=== PATIENT | male | born 1965 | race Caucasian/White ===

== ENCOUNTER 2020-11-21 11:36 | Outpatient (REF) | payer OTHER, SELFPAY | END 2020-11-21 11:37 | disposition home or self-care (01) | LOC: HO.LAB 11:36 | PROVIDERS: Visit Provider Internal Medicine | DX: Z20.822 Contact with and (suspected) exposure to COVID-19 (principal) | CPT/HCPCS: 36415; C9803; U0003 ==

== ENCOUNTER 2020-11-27 09:43 | Outpatient (REF) | payer OTHER, SELFPAY | END 2020-11-27 09:44 | disposition home or self-care (01) | LOC: HO.LAB 09:43 | PROVIDERS: Visit Provider Internal Medicine | DX: Z20.822 Contact with and (suspected) exposure to COVID-19 (principal) | CPT/HCPCS: 36415; C9803; U0003 ==

== ENCOUNTER 2020-12-12 10:12 | Outpatient (REF) | payer OTHER, SELFPAY | END 2020-12-12 10:13 | disposition home or self-care (01) | LOC: HO.LAB 10:12 | PROVIDERS: Visit Provider Internal Medicine | DX: Z20.822 Contact with and (suspected) exposure to COVID-19 (principal) | CPT/HCPCS: 36415; C9803; U0003; U0005 ==

== ENCOUNTER 2021-01-21 10:24 | Outpatient (REF) | payer OTHER, SELFPAY | END 2021-01-21 10:25 | disposition home or self-care (01) | LOC: HO.LAB 10:24 | PROVIDERS: Visit Provider Internal Medicine | DX: Z20.822 Contact with and (suspected) exposure to COVID-19 (principal) | CPT/HCPCS: 36415; C9803; U0003; U0005 ==

== ENCOUNTER 2021-02-13 15:20 | Outpatient (REF) | payer OTHER, SELFPAY | END 2021-02-13 15:21 | disposition home or self-care (01) | LOC: HO.LAB 15:20 | PROVIDERS: Visit Provider Internal Medicine | DX: Z20.822 Contact with and (suspected) exposure to COVID-19 (principal) | CPT/HCPCS: C9803; U0003; U0005 ==

== ENCOUNTER 2021-04-09 10:29 | Outpatient (REF) | payer OTHER, SELFPAY | END 2021-04-09 10:30 | disposition home or self-care (01) | LOC: HO.LAB 10:29 | PROVIDERS: Visit Provider Internal Medicine | DX: Z20.822 Contact with and (suspected) exposure to COVID-19 (principal) | CPT/HCPCS: C9803; U0003; U0005 ==

== ENCOUNTER 2021-06-02 10:14 | Outpatient (REF) | payer OTHER, SELFPAY | END 2021-06-02 10:15 | disposition home or self-care (01) | LOC: HO.LAB 10:14 | PROVIDERS: Visit Provider Internal Medicine | DX: Z20.822 Contact with and (suspected) exposure to COVID-19 (principal) | CPT/HCPCS: C9803; U0003; U0005 ==

== ENCOUNTER 2021-07-15 14:09 | Outpatient (REF) | payer OTHER, SELFPAY | END 2021-07-15 14:10 | disposition home or self-care (01) | LOC: HO.LAB 14:09 | PROVIDERS: Visit Provider Internal Medicine | DX: Z20.822 Contact with and (suspected) exposure to COVID-19 (principal) | CPT/HCPCS: C9803; U0003; U0005 ==

== ENCOUNTER 2021-07-25 12:06 | Outpatient (REF) | payer OTHER, SELFPAY | END 2021-07-25 12:07 | disposition home or self-care (01) | LOC: HO.LAB 12:06 | PROVIDERS: Visit Provider Internal Medicine | DX: Z20.822 Contact with and (suspected) exposure to COVID-19 (principal) | CPT/HCPCS: C9803; U0003; U0005 ==

== ENCOUNTER 2021-09-29 13:09 | Emergency (ER) | payer OTHER, SELFPAY ==
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
[2021-09-29 15:24] VITALS: BP 135/77; PULSE 78; RESP 16; O2SAT 98; BMI 25.2
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
== END 2021-09-29 16:28 | disposition home or self-care (01) ==
LOC: HO.ED 16:05
PROVIDERS: Emergency Provider Emergency Medicine
DX: S39.012A Strain of muscle, fascia and tendon of lower back, initial encounter (principal); V43.52XA Car driver injured in collision with other type car in traffic accident, initial encounter; Y93.89 Activity, other specified; Y92.414 Local residential or business street as the place of occurrence of the external cause; Y99.9 Unspecified external cause status
CPT/HCPCS: 72100; 99283

== ENCOUNTER → 2023-03-26 10:47 | Outpatient (BNVA) | payer OTHER, SELFPAY | PROVIDERS: PCP Registered Nurse; Referring Provider Registered Nurse; Visit Provider Surgery | DX: L72.9 Follicular cyst of the skin and subcutaneous tissue, unspecified (principal) | CPT/HCPCS: 99202 ==

== ENCOUNTER 2023-06-28 10:15 | Outpatient (REF) | payer OTHER, SELFPAY ==
[2023-06-28 12:30] LABS: Cholesterol 169 mg/dL (<200); HDL Cholesterol 47 mg/dL (>40); LDL Cholesterol Calculated 105 mg/dL (<100); Triglycerides 85 mg/dL (<150)
[2023-06-28 12:44] LABS: Estimated Average Glucose 108 mg/dL; Hemoglobin A1c % 5.4 % (<6.0); Prostate Specific Antigen 1.48 ng/mL (<0.05-4.0)
[2023-06-28 12:51] LABS: HBS Num1 15.23 mIU/mL (0-7.99); HBc Num1 4.81 S/CO (0.00-0.79); HBsAGNum1 0.47 S/CO (0.00-0.99); Hepatitis A Antibody IgM 0.29 Index (0-0.79); Hepatitis B Surface Antigen Negative (Negative); ~HepC Num1 0.21 S/CO (0.00-0.79); ~Hepatitis A Antibody IgM Nonreactive (Nonreactive); ~Hepatitis B Surface Antibody REACTIVE (Nonreactive); ~Hepatitis C Antibody Nonreactive (Nonreactive)
[2023-06-28 14:17] LABS: HBc Num2 4.83 S/CO; HBc Num3 4.86 S/CO; Hepatitis B Core Antibody Reactive (Nonreactive)
== END 2023-06-28 10:16 | disposition home or self-care (01) ==
LOC: HO.HHCL 10:15
PROVIDERS: Visit Provider Registered Nurse
DX: Z00.00 Encounter for general adult medical examination without abnormal findings (principal); Z12.5 Encounter for screening for malignant neoplasm of prostate; R73.03 Prediabetes; I10 Essential (primary) hypertension; I83.90 Asymptomatic varicose veins of unspecified lower extremity; E78.5 Hyperlipidemia, unspecified
CPT/HCPCS: 36415; 80061; 83036; 84153; 86704; 86706; 86709; 86803; 87340

== ENCOUNTER 2023-07-29 10:43 | Outpatient (REF) | payer OTHER, SELFPAY ==
[2023-07-29 10:58] VITALS: BMI 25.2
[2023-07-29 10:59] VITALS: BP 142/73; PULSE 67; RESP 16; TEMP 36.7; O2SAT 99
[2023-07-29 11:33] VITALS: BP 157/76; PULSE 77; RESP 16; O2SAT 95
--- NOTE | 2023-07-29 11:58 | W.PM.OPN ---
Operative Note Operative Note Date of Service: 07/29/23 Narrative: Preoperative diagnosis: Scrotal cyst Postoperative diagnosis: Same Procedure: Excision of scrotal cyst Surgeon: Spenser Torres MD Computer Programmer Analyst: None Anesthesia: 0.5% Sensorcaine with epinephrine Indications for procedure: 58-year-old male patient presenting with a cyst located in the midline anterior scrotum which is increasing in size. The patient denies any history of infection but is requesting excision. Operative findings: 1 cm scrotal cyst anterior midline scrotal sac Specimen: Scrotal cyst Estimated blood loss: 5 mL Complications: None Procedure details: Patient was brought to the minor surgery suite placed in a supine position. After ensuring informed consent, the patient confirm the site of surgery in the scrotum. The skin was then prepped with Betadine and draped in a sterile fashion. Local anesthesia was then infiltrated around the cyst. Incision was then made in elliptical fashion oriented transversely around the cyst. The cyst was then excised from the surrounding subcutaneous tissue. The specimen was passed off the table and sent to pathology for further examination. Light pressure was held to maintain hemostasis. Skin was then closed using a running 4-0 chromic suture. This was then burred with a liquid dressing. The patient tolerated the procedure well. He was discharged to home in stable condition.
== END 2023-07-29 10:44 | disposition home or self-care (01) ==
LOC: HO.MS 10:43
PROVIDERS: PCP Registered Nurse; Visit Provider Surgery
PROC: (CPT 11421; principal; 2023-07-29 11:10)
DX: L72.8 Other follicular cysts of the skin and subcutaneous tissue (principal)
CPT/HCPCS: 11421; 88304

== ENCOUNTER → 2023-07-29 10:43 | Outpatient (BNV) | payer OTHER, SELFPAY | PROVIDERS: PCP Registered Nurse; Visit Provider Surgery | DX: L72.0 Epidermal cyst (principal) | CPT/HCPCS: 11422 ==

== ENCOUNTER 2023-08-06 10:24 | Outpatient (AMB) | payer OTHER, SELFPAY ==
--- NOTE | 2023-08-06 10:39 | A.OFFVIS_ITS ---
Intake Vital Signs 08/06/23 10:45 Height 5 ft 6 in Weight 159 lb 8 oz BMI 25.7 BP 139/82 Blood Pressure Location Lt brachial Position Sitting Pulse 69 Intake Visit Reasons: S/P excision skin cyst of scrotum Intake Note: Patient is sen in office for post op assessment post excision of cyst scrotum. Patient c/o: admits to pain and discomfort in the area Jig Grinder Set Up Operator Required: Yes Jig Grinder Set Up Operator Language: Captain Airline Pilot Name: Jewels PAYTON Information Interpreted: non-clinical & clinical Accompanied by: Family/Other Allergies Penicillins [PCN] Allergy (Unknown, Unverified 08/06/23 10:44) UNKNWN aspirin Adverse Reaction (Intermediate, Verified 08/06/23 10:44) Nose Bleed ibuprofen Adverse Reaction (Mild, Verified 08/06/23 10:44) Nose Bleed HPI HPI Comments History of Present Illness Details Patient returns 1 week following excision of a scrotal cyst. Pathology confirmed an epidermal inclusion cyst. He tolerated the procedure well and returns today for wound check. [facility] Medical History (Updated 03/26/23 @ 11:10 by Spenser Torres MD) Hypertension Surgical History H/O removal of cyst (07/29/23) Physical Exam Vital Signs: Last Vital Signs Pulse 69 08/06/23 10:45 BP 139/82 08/06/23 10:45 BMI result Body Mass Index 25.7 Const General: healthy appearing Nutritional Appearance: well nourished Orientation/consciousness: patient oriented x3 Limitations: no limitations Resp Effort & Inspection: normal respiratory effort Other: Incision in scrotum is clean, dry, and intact without redness or discharge. Dissolvable sutures remain in place. There is no evidence of wound infection or hematoma. Neuro General: patient oriented x3 Assessment & Plan Assessment & Plan (1) Scrotal cyst: Code(s): L72.9 - Follicular cyst of the skin and subcutaneous tissue, unspecified Plan Patient tolerated the procedure well and his wounds are well healed. He should follow up as needed. Coding Level of Care Code Global (06344) Diagnoses Scrotal cyst L72.9
[2023-08-06 10:45] VITALS: BP 139/82; PULSE 69; BMI 25.7
== END 2023-08-06 11:10 | disposition home or self-care (01) ==
PROVIDERS: PCP Registered Nurse; Visit Provider Surgery
DX: L72.9 Follicular cyst of the skin and subcutaneous tissue, unspecified (principal)
CPT/HCPCS: 99024

== ENCOUNTER → 2023-08-06 10:24 | Outpatient (BNVA) | payer OTHER, SELFPAY | PROVIDERS: PCP Registered Nurse; Visit Provider Surgery ==

== ENCOUNTER 2024-01-11 12:21 | Outpatient (REF) | payer OTHER, SELFPAY ==
[2024-01-11 14:10] LABS: MANUAL DIFF FLAG NO
[2024-01-11 14:15] LABS: Basophils Percent Auto 0.4 % (0-2); Eosinophils Absolute Auto 0.2 X10*3/uL (0.0-0.4); Eosinophils Percent Auto 2.4 % (0-4); Hematocrit 42.9 % (42.0-52.0); Hemoglobin 14.6 g/dl (14.0-18.0); Imm Gran Abs Auto 0.02 X10*3/uL (0.00-0.03); Imm Gran Pct Auto 0.2 % (0.0-0.4); Lymphocytes Absolute Auto 1.7 X10*3/uL (1.2-4.9); Lymphocytes Percent Auto 19.2 % (20-40); Mean Corpuscular Hemoglobin 27.1 pg (27.0-33.0); Mean Corpuscular Volume 79.6 fL (80.0-98.0); Mean Platelet Volume 9.5 fL (9.4-12.4); Monocytes Absolute Auto 0.5 X10*3/uL (0.1-1.2); Monocytes Percent Auto 5.5 % (2-11); Neutrophils Absolute Auto 6.5 x10*3/uL (2.0-8.3); Neutrophils Percent Auto 72.3 % (45-73); Platelet Count 404 X10*3/uL (160-400); Red Blood Count 5.39 X10*6/uL (4.60-5.80); Red Cell Distribution Width 14.2 % (11.0-16.0); White Blood Count 9.1 X10*3/uL (4.8-10.8)
[2024-01-11 14:34] LABS: Alanine Aminotransferase 33 U/L (0-40); Albumin Level 4.6 g/dL (3.5-5.0); Alkaline Phosphatase 82 U/L (39-117); Anion Gap 8 (12-20); Aspartate Amino Transferase 22 U/L (5-37); Bilirubin Total 0.3 mg/dL (0.0-1.0); Blood Urea Nitrogen 21 mg/dL (9-16); Calcium 10.1 mg/dL (8.4-10.2); Carbon Dioxide 32 mmol/L (22-29); Chloride 104 mmol/L (96-108); Cholesterol 173 mg/dL (<200); Estimated Glomerular Filt Rate 55; Glucose Random 88 mg/dL (60-115); HDL Cholesterol 42 mg/dL (>40); LDL Cholesterol Calculated 103 mg/dL (<100); Potassium 4.4 mmol/L (3.3-5.1); Sodium 140 mmol/L (135-145); Total Protein 8.3 g/dL (6.5-8.0); Triglycerides 142 mg/dL (<150)
[2024-01-11 14:52] LABS: Vitamin D 25-OH Total 43.1 ng/mL (>30)
[2024-01-11 15:42] LABS: Estimated Average Glucose 114 mg/dL; Hemoglobin A1c % 5.6 % (<6.0)
== END 2024-01-11 12:22 | disposition home or self-care (01) ==
LOC: HO.HHCL 12:21
PROVIDERS: Visit Provider Nurse Practitioner Family
DX: E78.2 Mixed hyperlipidemia (principal); E83.52 Hypercalcemia; I10 Essential (primary) hypertension
CPT/HCPCS: 36415; 80053; 80061; 82306; 83036; 85025

== ENCOUNTER 2024-02-25 08:22 | Outpatient (AMB) | payer OTHER, SELFPAY ==
[2024-02-25 08:24] VITALS: BMI 25.7
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
== END 2024-02-25 09:00 | disposition home or self-care (01) ==
PROVIDERS: PCP Registered Nurse; Visit Provider Physician Assistant
DX: M19.011 Primary osteoarthritis, right shoulder (principal); M19.012 Primary osteoarthritis, left shoulder; S46.211A Strain of muscle, fascia and tendon of other parts of biceps, right arm, initial encounter
CPT/HCPCS: 99204

== ENCOUNTER 2024-02-25 08:22 | Outpatient (REF) | payer OTHER, SELFPAY ==
--- NOTE | ~2024-02-25 | XR_ITS ---
EXAMINATION: XR SHOULDER, RIGHT XR SHOULDER, LEFT CLINICAL INFORMATION: Shoulder pain. COMPARISON: None TECHNIQUE: Three views of each shoulder. FINDINGS: RIGHT SHOULDER: Minimal acromioclavicular and glenohumeral osteoarthritis. A 1 cm focus of calcific tendinitis is suspected in the region of the teres minor insertion, best seen on the axillary view. No fracture or malalignment. Right clavicle and chest wall are unremarkable. LEFT SHOULDER: Mild acromioclavicular and glenohumeral osteoarthritis. No fracture or malalignment. No foci of calcific tendinitis are identified. Enthesopathic spurring is present at the acromion. XR/XR shoulder RT min 2V IMPRESSION: 1. Mild acromioclavicular and glenohumeral osteoarthritis in both shoulders. 2. A 1 cm focus of calcific tendinitis at the right teres minor insertion.
--- NOTE | ~2024-02-25 | XR_ITS ---
EXAMINATION: XR SHOULDER, RIGHT XR SHOULDER, LEFT CLINICAL INFORMATION: Shoulder pain. COMPARISON: None TECHNIQUE: Three views of each shoulder. FINDINGS: RIGHT SHOULDER: Minimal acromioclavicular and glenohumeral osteoarthritis. A 1 cm focus of calcific tendinitis is suspected in the region of the teres minor insertion, best seen on the axillary view. No fracture or malalignment. Right clavicle and chest wall are unremarkable. LEFT SHOULDER: Mild acromioclavicular and glenohumeral osteoarthritis. No fracture or malalignment. No foci of calcific tendinitis are identified. Enthesopathic spurring is present at the acromion. XR/XR shoulder LT min 2V IMPRESSION: 1. Mild acromioclavicular and glenohumeral osteoarthritis in both shoulders. 2. A 1 cm focus of calcific tendinitis at the right teres minor insertion.
== END 2024-02-25 08:23 | disposition home or self-care (01) ==
LOC: HO.HOSX 08:22
PROVIDERS: PCP Registered Nurse; Visit Provider Physician Assistant
DX: M19.011 Primary osteoarthritis, right shoulder (principal); M19.012 Primary osteoarthritis, left shoulder; S46.211A Strain of muscle, fascia and tendon of other parts of biceps, right arm, initial encounter; X58.XXXA Exposure to other specified factors, initial encounter; Y93.9 Activity, unspecified; Y92.9 Unspecified place or not applicable; Y99.9 Unspecified external cause status
CPT/HCPCS: 73030; 99202

== ENCOUNTER 2024-08-18 10:25 | Outpatient (REF) | payer OTHER, SELFPAY ==
[2024-08-18 11:20] LABS: MANUAL DIFF FLAG NO
[2024-08-18 11:26] LABS: Basophils Percent Auto 0.4 % (0-2); Eosinophils Absolute Auto 0.2 X10*3/uL (0.0-0.4); Eosinophils Percent Auto 1.7 % (0-4); Hematocrit 41.8 % (42.0-52.0); Hemoglobin 14.2 g/dl (14.0-18.0); Imm Gran Abs Auto 0.04 X10*3/uL (0.00-0.03); Imm Gran Pct Auto 0.4 % (0.0-0.4); Lymphocytes Percent Auto 20.7 % (20-40); Mean Corpuscular Hemoglobin 27.8 pg (27.0-33.0); Mean Corpuscular Volume 81.8 fL (80.0-98.0); Mean Platelet Volume 9.7 fL (9.4-12.4); Monocytes Absolute Auto 0.5 X10*3/uL (0.1-1.2); Monocytes Percent Auto 5.7 % (2-11); Neutrophils Absolute Auto 6.7 x10*3/uL (2.0-8.3); Neutrophils Percent Auto 71.1 % (45-73); Platelet Count 391 X10*3/uL (160-400); Red Blood Count 5.11 X10*6/uL (4.60-5.80); Red Cell Distribution Width 13.5 % (11.0-16.0); White Blood Count 9.5 X10*3/uL (4.8-10.8)
[2024-08-18 11:38] LABS: Alanine Aminotransferase 24 U/L (0-40); Albumin Level 4.6 g/dL (3.5-5.0); Alkaline Phosphatase 78 U/L (39-117); Anion Gap 9 (12-20); Aspartate Amino Transferase 21 U/L (5-37); Bilirubin Total 0.4 mg/dL (0.0-1.0); Blood Urea Nitrogen 15 mg/dL (9-16); Calcium 10.1 mg/dL (8.4-10.2); Carbon Dioxide 28 mmol/L (22-29); Chloride 105 mmol/L (96-108); Cholesterol 184 mg/dL (<200); Estimated Average Glucose 114 mg/dL; Estimated Glomerular Filt Rate > 60; Glucose Random 117 mg/dL (60-115); HDL Cholesterol 47 mg/dL (>40); Hemoglobin A1C 129.4142 umol/L; Hemoglobin A1c % 5.6 % (<6.0); LDL Cholesterol Calculated 121 mg/dL (<100); Potassium 4.4 mmol/L (3.3-5.1); Sodium 138 mmol/L (135-145); Total Hemoglobin (HGBA1C) 3439.5601 umol/L; Triglycerides 80 mg/dL (<150)
[2024-08-18 14:30] LABS: Folate 14.5 ng/mL (> or = 4.0); Vitamin B12 498 pg/mL (200-900)
== END 2024-08-18 10:26 | disposition home or self-care (01) ==
LOC: HO.HHCL 10:25
PROVIDERS: Visit Provider Nurse Practitioner Family
DX: R20.2 Paresthesia of skin (principal); Z86.2 Personal history of diseases of the blood and blood-forming organs and certain disorders involving the immune mechanism; I10 Essential (primary) hypertension; E78.2 Mixed hyperlipidemia
CPT/HCPCS: 36415; 80053; 80061; 82607; 82746; 83036; 85025

== ENCOUNTER 2024-09-20 11:45 | Outpatient (REF) | payer OTHER, SELFPAY ==
--- NOTE | ~2024-09-20 | XR_ITS ---
EXAMINATION: XR CHEST CLINICAL INFORMATION: Productive cough COMPARISON: None available. TECHNIQUE: 2 views of the chest were obtained. FINDINGS: There is questionable nodule is identified in the right lower lobe, otherwise it could be result of overlapping of structures or prominent nipple. The rest of lungs are clear and cardiomediastinal silhouette is normal. No pleural effusions seen. XR/XR chest 2V IMPRESSION: Questionable right lower lobe nodule. Follow-up by CT scan. Electronically signed by: Camelia Del Angel MD 09/20/2024 04:51 PM EST
== END 2024-09-20 11:46 | disposition home or self-care (01) ==
LOC: HO.HHCX 11:45
PROVIDERS: Visit Provider Emergency Medicine
DX: R05.1 Acute cough (principal)
CPT/HCPCS: 71046

== ENCOUNTER 2024-11-20 08:52 | Outpatient (REF) | payer OTHER, SELFPAY | END 2024-11-20 08:53 | disposition home or self-care (01) | LOC: HO.CT 08:52 | PROVIDERS: PCP Registered Nurse; Visit Provider Emergency Medicine | DX: Z13.89 Encounter for screening for other disorder (principal) ==